=== PATIENT | male | born 1995 | race Caucasian/White ===

== ENCOUNTER → 2018-04-21 | Outpatient (CLI) | payer OTHER ==
--- NOTE | 2018-04-21 09:43 | US ---
EXAMINATION TYPE: US abdomen complete DATE OF EXAM: 04/21/2018 COMPARISON: NONE CLINICAL HISTORY: R19.04 left lower quardant abdomial mass. Pt states LLQ palpable lump x few years, denies pain EXAM MEASUREMENTS: Liver Length: 14.1 cm Gallbladder Wall: 0.2 cm CBD: 0.5 cm Spleen: 10.0 cm Right Kidney: 11.6 x 4.4 x 5.5 cm Left Kidney: 11.5 x 6.3 x 5.6 cm Pt very gassy Pancreas: Obscured by bowel gas Liver: Visualized portions appeared wnl Gallbladder: wnl Evidence for sonographic Baker's sign: No CBD: wnl Spleen: wnl Right Kidney: wnl Left Kidney: wnl Upper IVC: wnl Abd Aorta: distal portion wnl, prox and mid portion obscured by overlying bowel gas LLQ in area of pt's palpable shows an isoechoic area= 1.2 x 0.7 x 1.0 cm The liver is homogenous. The intrahepatic portion of the IVC and proximal abdominal aorta are within normal limits. There is no evidence of cholelithiasis. Common bile duct is unremarkable. The visu alized portions of the pancreas are homogenous. The spleen is unremarkable. Kidneys are symmetric a nd free of hydronephrosis. No renal lesions are seen. IMPRESSION: 1.LLQ in area of pt's palpable shows an isoechoic area= 1.2 x 0.7 x 1.0 cmwhich is nonspecific.
== END | disposition home or self-care (01) ==
LOC: RADUSWWP 07:57
PROVIDERS: ATTEND Internal Medicine
DX: R19.04 Left lower quadrant abdominal swelling, mass and lump (principal)
CPT/HCPCS: 76700